=== PATIENT | female | born 1960 | race Caucasian/White ===

== ENCOUNTER 2021-03-20 16:14 | Emergency (ER) | payer OTHER ==
[~2021-03-20 16:14] MED LIST: HYDROCHLOROTHIA25 MG PO
[2021-03-20 21:12] LABS: HEMOGLOBIN 13.2 gm/dl (12.3-15.3); RED BLOOD COUNT 4.07 M/UL (4.00-5.10); WHITE BLOOD COUNT 7.1 K/UL (4.5-11.0)
[2021-03-20 21:52] LABS: BUN/CREATININE RATIO 14 (0-10)
== END 2021-03-21 05:10 | disposition home or self-care (01) ==
LOC: ER1 16:14
PROVIDERS: Emergency Medicine
DX: R07.89 Other chest pain (principal); I10 Essential (primary) hypertension; J45.909 Unspecified asthma, uncomplicated; Z88.0 Allergy status to penicillin; Z88.1 Allergy status to other antibiotic agents
CPT/HCPCS: 71045; 80053; 82550; 82553; 83874; 84484; 85025; 93005; 99285

== ENCOUNTER → 2021-05-03 | Outpatient (CLI) | payer OTHER | LOC: KOH-I 16:09 | DX: M17.0 Bilateral primary osteoarthritis of knee (principal) | CPT/HCPCS: 73562 ==

== ENCOUNTER 2021-06-11 14:54 | Emergency (ER) | payer OTHER ==
[2021-06-11 16:04] LABS: HEMOGLOBIN 12.6 gm/dl (12.3-15.3); RED BLOOD COUNT 3.96 M/UL (4.00-5.10); WHITE BLOOD COUNT 6.8 K/UL (4.5-11.0)
[2021-06-11 16:26] LABS: BUN/CREATININE RATIO 19 (0-10)
[2021-06-11] MEDS ORDERED: MACROBID 100 M100 MG PO (16:44)
[2021-06-11] MEDS ORDERED: PYRIDIUM200 MG PO (16:44)
== END 2021-06-11 17:32 | disposition home or self-care (01) ==
LOC: ER1 14:54
PROVIDERS: Physician Assistant
DX: N30.90 Cystitis, unspecified without hematuria (principal); D69.6 Thrombocytopenia, unspecified; I10 Essential (primary) hypertension; E78.5 Hyperlipidemia, unspecified; E07.9 Disorder of thyroid, unspecified; Z88.0 Allergy status to penicillin
CPT/HCPCS: 80053; 81001; 85025; 99284

== ENCOUNTER → 2021-09-08 | Outpatient (CLI) | payer OTHER ==
[~2021-09-08] MED LIST changes: +MACROBID 100 M100 MG PO; +PYRIDIUM200 MG PO
== END ==
LOC: LAB 12:59
DX: Z13.1 Encounter for screening for diabetes mellitus (principal); E11.9 Type 2 diabetes mellitus without complications; M51.36 Other intervertebral disc degeneration, lumbar region
CPT/HCPCS: 36415; 83036; 87081